=== PATIENT | male | born 1985 | race Caucasian/White ===

== ENCOUNTER 2023-12-15 14:28 | Emergency (ER) | payer MEDICAID ==
[~2023-12-15] VITALS: Ht 162.6 cm; Wt 86.0 kg
[2023-12-15 14:51] VITALS: BP 165/114; PULSE 79; RESP 18; TEMP 98.2; O2SAT 98
== END 2023-12-15 16:57 | disposition left against medical advice (07) ==
LOC: ER 14:52
DX: R51.9 Headache, unspecified (principal); H53.8 Other visual disturbances; F15.10 Other stimulant abuse, uncomplicated; Z53.21 Procedure and treatment not carried out due to patient leaving prior to being seen by health care provider
CPT/HCPCS: 99281

== ENCOUNTER 2023-12-15 18:31 | Emergency (ER) | payer MEDICAID ==
[~2023-12-15] VITALS: Ht 162.6 cm; Wt 90.7 kg
[2023-12-15 18:41] VITALS: O2SAT 99
[2023-12-15 20:32] LABS: BASOPHILS % 0.9 % (0.0-2.0); DIFFERENTIAL COMMENT 0; EOSINOPHILS % 0.9 % (0.0-5.0); HEMATOCRIT. 38.2 % (42.0-52.0); MEAN CORPUSCULAR HEMOGLOBIN 22.8 pg (28.0-32.0); MEAN CORPUSCULAR HGB CONC 31.5 g/dL (31.0-37.0); MEAN CORPUSCULAR VOLUME 72.4 fL (80.0-94.0); MEAN PLATELET VOLUME 7.5 fl (7.4-10.4); MONOCYTES % 7.9 % (2.0-8.0); NEUTROPHILS % 64.3 % (40.0-76.0); PLATELET 353 x1000/uL (130-400); RED BLOOD CELL COUNT 5.27 mill/uL (4.7-6.1); RED CELL DISTRIBUTION WIDTH 19.6 % (11.6-14.6); WHITE BLOOD COUNT 9.2 x1000/uL (4.5-11.0)
[2023-12-15 20:41] LABS: CARBON DIOXIDE 27 mEq/L (21-32); CHLORIDE 103 mEq/L (98-107); POTASSIUM 3.6 mEq/L (3.5-5.1); SODIUM 141 mEq/L (136-145)
[2023-12-15 20:42] LABS: CALCIUM 9.4 mg/dL (8.7-10.4); INR 0.9; PARTIAL THROMBOPLASTIN TIME 26.5 sec (23.4-31.0); PROTHROMBIN TIME 10.2 sec (9.6-11.0)
[2023-12-15 20:47] LABS: CREATININE 0.8 mg/dL (0.6-1.3); GLUCOSE 99 mg/dL (70-105); UREA NITROGEN BLOOD 7 mg/dL (9-23)
[2023-12-15 20:48] LABS: ALANINE AMINOTRANSFERASE 22 IU/L (10-49)
[2023-12-15 20:49] LABS: ALBUMIN 4.5 g/dL (3.2-4.8); ASPARTATE AMINOTRANSFERASE 19 IU/L (<34); BILIRUBIN TOTAL 0.4 mg/dL (0.1-1.0); PROTEIN TOTAL 7.4 g/dL (6.0-8.3)
[2023-12-15 20:52] LABS: TROPONIN I HIGH SENSITIVITY < 4 ng/L (3.0-53)
[2023-12-15 23:19] VITALS: BP 169/104; PULSE 78; RESP 20; TEMP 98.5
== END 2023-12-15 23:20 | disposition home or self-care (01) ==
LOC: ER 18:31
DX: H53.8 Other visual disturbances (principal); F15.10 Other stimulant abuse, uncomplicated
CPT/HCPCS: 36415; 71045; 80053; 83880; 84484; 85025; 93005; 99285